=== PATIENT | male | born 1980 | race American Indian/Alaskan Native ===

== ENCOUNTER 2017-01-14 19:48 | Emergency (ER) | payer MEDICAID, OTHER ==
[2017-01-14 20:07] VITALS: BP 164/105
--- NOTE | 2017-01-14 20:17 | EDM.PDOC ---
ED HPI GENERAL MEDICAL PROBLEM - General Chief Complaint: General Stated Complaint: COLD [id number] Time Seen by Provider: 01/14/17 20:10 Source of Information: Reports: Patient History Limitations: Reports: No limitations - History of Present Illness INITIAL COMMENTS - FREE TEXT/NARRATIVE: This 36 yo male patient reports to the ED with a 2 day history of a cough, runny nose and sore throat. The patient reports his right upper chest hurts when he coughs. The patient reports he has been taking Dayquil with little to no symptom relief. The patient reports he has been feeling hot, but has not taken his temp. The patient has a past history of hypothyroid, hypertension, diabetes, GERD and anxiety. Onset: gradual Onset Date: 01/12/17 Duration: Day(s): (2), Constant, Getting worse Location: Reports: head, chest Quality: Reports: Ache, Dull Severity: moderate Improves with: Reports: None Worsens with: Reports: Other (coughing) Associated Symptoms: Reports: chest pain (RU with cough), cough w sputum Treatments [employer]: Reports: Other medication(s) Throat Pain Score (Numeric/FACES): 2 - Related Data Allergies Allergy/AdvReac Type Severity Reaction Status Date / Time No Known Allergies Allergy Verified 01/14/17 20:07 Home Meds: Home Meds Aspirin [[place] Aspirin] 81 mg PO DAILY 01/14/17 [History] Latanoprost [Xalatan] 2.5 ml OP DAILY 01/14/17 [History] Levothyroxine [Synthroid] 50 mcg PO ACBREAKFAST 01/14/17 [History] Loratadine 10 mg PO 01/14/17 [History] Metoprolol Tartrate 75 mg PO DAILY 01/14/17 [History] Polyvinyl Alcohol/Povidone/Pf [Refresh Classic Eye Drops] 1 each OP DAILY [History] SitaGLIPtin [Januvia] 100 mg PO DAILY 01/14/17 [History] Sodium Bicarbonate 650 mg PO BID 01/14/17 [History] amLODIPine [Norvasc] 10 mg PO BEDTIME 01/14/17 [History] cloNIDine [Catapres] 0.1 mg PO DAILY 01/14/17 [History] Past Medical History - Past Health History Medical/Surgical History: Denies Medical/Surgical History HEENT History: Reports: Impaired vision Other HEENT History: 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 Cardiovascular History: Reports: Hypertension Neurological History: Reports: CVA Psychiatric History: Reports: Anxiety Endocrine/Metabolic History: Reports: Diabetes, type II Hematologic History: Reports: Anemia - Infectious Disease History Infectious Disease History: Reports: Chicken pox - Past Surgical History Endocrine Surgical History: Reports: None Social & Family History - Family History Family Medical History: Unobtainable - Tobacco Use Smoking Status *Q: Never Smoker Years of Tobacco use: 15 Packs/Tins Daily: 1 Second Hand Smoke Exposure: No - Caffeine Use Caffeine Use: Reports: Tea - Alcohol Use Days Per Week of Alcohol Use: 2 Number of Drinks Per Day: 6 Total Drinks Per Week: 12 - Recreational Drug Use Recreational Drug Use: No Drug Use in Last 12 Months: No Recreational Drug Type: Reports: Methamphetamine Recreational Drug Use Frequency: Not Used In Over 1 Year - Living Situation & Occupation Living situation: Reports: other (currently in [facility]) Occupation: employed ED ROS GENERAL - Review of Systems Review Of Systems: ROS reveals no pertinent complaints other than HPI. ED EXAM, GENERAL - Physical Exam Exam: See Below Exam Limited By: No limitations General Appearance: alert, WD/WN, mild distress Eye Exam: bilateral eye: EOMI, normal inspection, PERRL Ears: normal external exam, normal canal, hearing grossly normal, normal TMs Nose: normal inspection, normal mucosa, no blood Throat/Mouth: Normal inspection, Normal lips, Normal teeth, Normal gums, Normal oropharynx, Normal voice, No airway compromise Head: atraumatic, normocephalic Neck: normal inspection, supple, non-tender, full range of motion Respiratory/Chest: no respiratory distress, lungs clear, normal breath sounds, no accessory muscle use, chest non-tender. No: rales, rhonchi, wheezing Cardiovascular: normal peripheral pulses, regular rate, rhythm, no edema, no gallop, no JVD, no murmur, no rub GI/Abdominal: normal bowel sounds, soft, non tender, no organomegaly, no distention, no abnormal bruit, no mass (Male) Exam: Deferred Rectal (Males) Exam: Deferred Back Exam: normal inspection, full range of motion, NT Extremities: normal inspection, normal range of motion, non-tender, normal capillary refill, no pedal edema Neurological: alert, oriented, CN II-XII intact, normal cognition, normal gait, normal reflexes, no motor/sensory deficits Psychiatric: normal affect, normal mood Skin Exam: Warm, Dry, Intact, Normal color, No rash Lymphatic: no adenopathy Course - Vital Signs Last Recorded V/S: Last Vital Signs Temp 36.4 C 01/14/17 19:57 Pulse 63 01/14/17 19:57 Resp 19 01/14/17 19:57 BP 164/105 H 01/14/17 19:57 Pulse Ox 100 01/14/17 19:57 - Orders/Labs/Meds Orders: Active Orders 24 hr Category Date Time Status Chest 2V [CR] Urgent Exams 01/14/17 20:12 Ordered Codeine/guaiFENesin [Robitussin AC] Med 01/14/17 20:31 Once 5 ml PO ONETIME ONE Medication Orders Guaifenesin/Codeine Phosphate (Robitussin Ac) 5 ml PO ONETIME ONE Stop: 01/14/17 20:32 Labs: Laboratory Tests 01/14/17 Range/Units 20:19 WBC 11.6 H (5.0-10.0) 10^3/uL RBC 3.83 L (4.6-6.2) 10^6/uL Hgb 10.9 L (14.0-18.0) g/dL Hct 32.3 L (40.0-54.0) % MCV 84.3 (80-100) fL MCH 28.5 (27.0-34.0) pg MCHC 33.7 (33.0-35.0) g/dL Plt Count 373 (150-450) 10^3/uL Neut % (Auto) 76.4 H (42.2-75.2) % Lymph % (Auto) 14.1 L (20.5-50.1) % Carter % (Auto) 6.6 (2-8) % Eos % (Auto) 2.5 (1.0-3.0) % Baso % (Auto) 0.4 (0.0-1.0) % Meds: Medications Generic Name Dose Route Start Last Admin Trade Name Freq PRN Reason Stop Dose Admin Guaifenesin/Codeine Phosphate 5 ml 01/14/17 20:31 Robitussin Ac PO 01/14/17 20:32 ONETIME ONE Discontinued Medications Generic Name Dose Route Start Last Admin Trade Name Michael PRN Reason Stop Dose Admin Amoxicillin/Clavulanate Potassium 1 tab 01/14/17 20:29 Augmentin 875 Mg/125 Mg PO 01/14/17 20:30 ONETIME ONE Departure - Departure Time of Disposition: 20:31 Disposition: Home, Self-Care 01 Condition: fair Clinical Impression: Acute bronchitis Qualifiers: Bronchitis organism: unspecified organism Qualified Code(s): J20.9 - Acute bronchitis, unspecified Instructions: Acute Bronchitis, [id number] Forms: ED Department Discharge Care Plan Goals: The patient was advised of the examination, lab and x-ray results during the visit. The patient was given an oral dose of Augmentin and Robatussin AC while in the ED. The patient discharged with a script for Augmentin (500/125) to take 1 by mouth 3 times per day for 7 days and Robitussin AC #100 mL to take 5 mL by mouth at bedtime as needed. If the patient has any additional symptoms or concerns, the patient should follow-up with his primary care facility or return to the emergency department. - My Orders Last 24 Hours: My Active Orders 01/14/17 20:12 Chest 2V [CR] Urgent 01/14/17 20:31 Codeine/guaiFENesin [Robitussin AC] 5 ml PO ONETIME ONE - Assessment/Plan Last 24 Hours: My Active Orders 01/14/17 20:12 Chest 2V [CR] Urgent 01/14/17 20:31 Codeine/guaiFENesin [Robitussin AC] 5 ml PO ONETIME ONE
[2017-01-14] MEDS ORDERED: Amoxicillin/Clavulanate K 875-125 MG Tab PO ONE (20:29)
[2017-01-14] MEDS ORDERED: Codeine/guaiFENesin 100-10 MG/5 ML Syrup 5 ML Cup PO ONE (20:31)
== END 2017-01-14 20:40 | disposition home or self-care (01) ==
LOC: DL.ED 19:48
DX: J20.9 Acute bronchitis, unspecified (principal); I10 Essential (primary) hypertension; F41.9 Anxiety disorder, unspecified; E11.9 Type 2 diabetes mellitus without complications; Z86.73 Personal history of transient ischemic attack (TIA), and cerebral infarction without residual deficits; Z79.82 Long term (current) use of aspirin; Z79.899 Other long term (current) drug therapy
CPT/HCPCS: 36415; 71020; 85025; 99283; A9270

== ENCOUNTER 2017-02-20 14:30 | Emergency (ER) | payer MEDICAID, OTHER, SELFPAY ==
[2017-02-20] MEDS ORDERED: Acetaminophen/HYDROcodone 325-10 MG Tab PO ONE (14:59)
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
[2017-02-20 15:13] VITALS: BP 148/92
== END 2017-02-20 15:10 | disposition home or self-care (01) ==
LOC: DL.ED 14:30
DX: K08.409 Partial loss of teeth, unspecified cause, unspecified class (principal); I10 Essential (primary) hypertension; F41.9 Anxiety disorder, unspecified; E11.9 Type 2 diabetes mellitus without complications; Z79.82 Long term (current) use of aspirin; Z79.899 Other long term (current) drug therapy; Z86.2 Personal history of diseases of the blood and blood-forming organs and certain disorders involving the immune mechanism
CPT/HCPCS: 99282; A9270

== ENCOUNTER 2017-03-12 20:10 | Emergency (ER) | payer MEDICAID, OTHER ==
[2017-03-12 20:20] VITALS: BP 172/96
[2017-03-12] MEDS ORDERED: Acetaminophen/HYDROcodone 325-10 MG Tab PO ONE (20:45)
[2017-03-12] MEDS ORDERED: Silver Sulfadiazine 1% Crm 50 GM Tube TOP ONE (20:45)
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
== END 2017-03-12 20:58 | disposition home or self-care (01) ==
LOC: DL.ED 20:10
DX: T23.211A Burn of second degree of right thumb (nail), initial encounter (principal); H54.7 Unspecified visual loss; Z79.82 Long term (current) use of aspirin; F41.9 Anxiety disorder, unspecified; E11.9 Type 2 diabetes mellitus without complications; I10 Essential (primary) hypertension; Z86.73 Personal history of transient ischemic attack (TIA), and cerebral infarction without residual deficits; D64.9 Anemia, unspecified; X03.8XXA Other exposure to controlled fire, not in building or structure, initial encounter
CPT/HCPCS: 16020; 99283; A9270

== ENCOUNTER 2018-04-24 08:40 | Day surgery (SDC) | payer MEDICAID, OTHER ==
[2018-04-24] MEDS ORDERED: Sodium Chloride 0.9% 10 ML Syringe IV ONE (08:41)
[2018-04-24] MEDS ORDERED: Midazolam 1 MG/ML 2 ML SDV IV ONE (08:41)
[2018-04-24] MEDS ORDERED: Dexamethasone 4 MG/ML SDV IV ONE (08:41)
[2018-04-24] MEDS ORDERED: Phenylephrine 10% Ophth Soln 5 ML Bot EYELF ONE (09:00)
[2018-04-24] MEDS ORDERED: Sodium Chloride 0.9% 10 ML Syringe FLUSH PRN (09:00)
[2018-04-24] MEDS ORDERED: Acetaminophen 325 MG Tab PO PRN (09:00)
[2018-04-24] MEDS ORDERED: Proparacaine 0.5% Ophth Soln 15 ML Bottle EYELF ONE (09:00)
[2018-04-24] MEDS ORDERED: Phenylephrine 10% Ophth Soln 5 ML Bot EYELF PRN (09:00)
[2018-04-24] MEDS ORDERED: Povidone-Iodine 5% Sterile Ophth Soln 30 ML Bottle EYELF ONE ×2 (09:00→09:47)
[2018-04-24] MEDS ORDERED: Cataract Ophth Solution EYELF ONE (09:00)
[2018-04-24] MEDS ORDERED: Timolol Maleate 0.5% Ophth Soln 5 ML Bottle EYELF ONE (09:00)
[2018-04-24] MEDS ORDERED: Moxifloxacin 0.5% Ophth Soln 3 ML Bottle EYELF ONE (09:00)
[2018-04-24] MEDS ORDERED: Ondansetron 4 MG/2 ML SDV IVPUSH PRN (09:00)
[2018-04-24] MEDS ORDERED: Lidocaine 1% 30 ML SDV ONE (09:47)
[2018-04-24] MEDS ORDERED: Balanced Salt Solution Ophth Irrig 500 ML Bottle IOCULAR ONE (09:47)
[2018-04-24] MEDS ORDERED: Chondroitin Sulfate/Hyaluronate Sodium Ophth Inj 0.75 ML Syringe EYELF ONE (09:47)
[2018-04-24] MEDS ORDERED: Tetracaine HCl/PF 0.5% 4 ML Bottle EYELF ONE (09:47)
[2018-04-24] MEDS ORDERED: Vancomycin 500 MG SDV EYELF ONE ×2 (09:47)
[2018-04-24] MEDS ORDERED: Apraclonidine 0.5% Ophth Soln 5 ML Bot EYELF ONE (09:58)
[2018-04-24] MEDS ORDERED: Dexamethasone/Neomycin/Polymyxin B Ophth Oint 3.5 GM Tube EYELF ONE ×2 (09:58)
[2018-04-24 11:17] VITALS: BP 130/83
--- NOTE | 2018-04-25 08:24 | OR ---
DATE: 04/24/2018 PREOPERATIVE DIAGNOSES: 1. Visually significant mixed cataract, left eye. 2. Primary open angle glaucoma, left eye. POSTOPERATIVE DIAGNOSES: 1. Visually significant mixed cataract, left eye. 2. Primary open angle glaucoma, left eye. PROCEDURES: 1. Extracapsular cataract extraction with intraocular lens implant. 2. Placement of iStent for glaucoma control. SURGEON: Dale Renae MD ANESTHESIA: Local MAC. INDICATION: Mr. Jensen was seen in the clinic. He is unhappy with his vision. He has noticed a progressive change. He has difficulty reading fine print. His best spectacle corrected vision is at the level of 20/200. Clinical examination reveals mixed cataract, moderate open-angle glaucoma. He also has a history of proliferative diabetic retinopathy. I explained options. I offered cataract surgery and I explained risks including the potential for infection, retinal detachment, loss of vision amongst others. I also explained that his ultimate visual potential will likely be limited by retinal health. I offered the surgery with or without the iStent. He requested the iStent procedure. I recommended a monofocal implant. He voiced an understanding and wished to proceed. OPERATIVE DESCRIPTION: The patient was prepped and draped in a sterile fashion and topical anesthesia was applied. Attention was placed on the operative eye. A sterile lid speculum was placed to allow operative exposure. Paracentesis was made temporal. Intracameral lidocaine was administered. Viscoelastic was injected. A full-thickness corneal incision was made using the trapezoidal blade. Bent needle cystotome was then used to make a small liz in the anterior capsule and a 360-degree curvilinear capsulorrhexis was created. Nucleus was then hydrodissected and hydrodelineated using balanced saline solution. Nucleus was then decompressed centrally and rotated and noted to be free of adhesions. Nucleus was then removed using the phacoemulsification handpiece. Additional viscoelastic was then injected into the capsular bag and the intraocular lens was inserted into the capsular bag. The iStent portion of the procedure was then performed. Following removal of the nucleus and cortex, the irrigation and aspiration handpiece was inserted to remove viscoelastic from the posterior surface of the IOL. Additional viscoelastic was then inserted into the anterior chamber angle directly opposite the corneal incision. Miochol was injected into the nasal iris to promote pupillary contraction. The patient's head was then rotated 35 degrees away from the initial position. The operating microscope was also rotated 35 degrees to achieve the proper orientation. The gonioprism was then placed onto the eye. The iStent was then inserted into the anterior chamber with the right hand and the stent was introduced into the pigmented trabecular meshwork. The stent was advanced beneath the trabecular meshwork until approximately two-thirds of the body was covered and then the stent was released from the insertion device. The stent was then tapped into its final resting position using the insertion device. The device was then reinspected to ensure that it was securely in position. The viscoelastic was aspirated from the anterior chamber. Wound and paracentesis sites were hydrated using balanced saline solution. Vancomycin 0.1 mL was injected into the anterior chamber. Intraocular lens was inspected and noted to be clear and well centered. Postoperative drops were placed and a sterile eye patch and shield were placed over the operative eye. The patient was then transported to the postoperative recovery area having tolerated the procedure well. No complications occurred. [facility] /[id number]
== END 2018-04-24 10:58 | disposition home or self-care (01) ==
LOC: DL.SDS 08:40
PROVIDERS: ATTEND Ophthalmology
DX: E11.36 Type 2 diabetes mellitus with diabetic cataract (principal); H25.812 Combined forms of age-related cataract, left eye; H40.1122 Primary open-angle glaucoma, left eye, moderate stage; I12.0 Hypertensive chronic kidney disease with stage 5 chronic kidney disease or end stage renal disease; E11.22 Type 2 diabetes mellitus with diabetic chronic kidney disease; N18.6 End stage renal disease; D63.1 Anemia in chronic kidney disease; Z99.2 Dependence on renal dialysis; E11.42 Type 2 diabetes mellitus with diabetic polyneuropathy; E11.21 Type 2 diabetes mellitus with diabetic nephropathy; E03.9 Hypothyroidism, unspecified; Z87.891 Personal history of nicotine dependence; Z79.82 Long term (current) use of aspirin; Z79.899 Other long term (current) drug therapy
CPT/HCPCS: 00142; 0191T; 66984; A9270; C1783; J1100; J2250; J3370; J7050; V2632

== ENCOUNTER 2018-05-01 08:59 | Day surgery (SDC) | payer MEDICAID, OTHER ==
[2018-05-01] MEDS ORDERED: Sodium Chloride 0.9% 10 ML Syringe IV ONE (09:00)
[2018-05-01] MEDS ORDERED: Midazolam 1 MG/ML 2 ML SDV IV ONE (09:00)
[2018-05-01] MEDS ORDERED: Dexamethasone 4 MG/ML SDV IV ONE (09:00)
[2018-05-01] MEDS ORDERED: Phenylephrine 10% Ophth Soln 5 ML Bot EYERT ONE (09:30)
[2018-05-01] MEDS ORDERED: Sodium Chloride 0.9% 10 ML Syringe FLUSH PRN (09:30)
[2018-05-01] MEDS ORDERED: Proparacaine 0.5% Ophth Soln 15 ML Bottle EYERT ONE (09:30)
[2018-05-01] MEDS ORDERED: Ondansetron 4 MG/2 ML SDV IVPUSH PRN (09:30)
[2018-05-01] MEDS ORDERED: Phenylephrine 10% Ophth Soln 5 ML Bot EYERT PRN (09:30)
[2018-05-01] MEDS ORDERED: Acetaminophen 325 MG Tab PO PRN (09:30)
[2018-05-01] MEDS ORDERED: Cataract Ophth Solution EYERT ONE (09:30)
[2018-05-01] MEDS ORDERED: Timolol Maleate 0.5% Ophth Soln 5 ML Bottle EYERT ONE (09:30)
[2018-05-01] MEDS ORDERED: Moxifloxacin 0.5% Ophth Soln 3 ML Bottle EYERT ONE (09:30)
[2018-05-01] MEDS ORDERED: Povidone-Iodine 5% Sterile Ophth Soln 30 ML Bottle EYERT ONE ×2 (09:30→10:19)
[2018-05-01] MEDS ORDERED: Tetracaine HCl/PF 0.5% 4 ML Bottle EYERT ONE (10:19)
[2018-05-01] MEDS ORDERED: Lidocaine 1% 30 ML SDV ONE (10:20)
[2018-05-01] MEDS ORDERED: Vancomycin 500 MG SDV EYERT ONE (10:20)
[2018-05-01] MEDS ORDERED: Chondroitin Sulfate/Hyaluronate Sodium Ophth Inj 0.75 ML Syringe EYERT ONE (10:21)
[2018-05-01] MEDS ORDERED: Balanced Salt Solution Ophth Irrig 500 ML Bottle IOCULAR ONE (10:21)
[2018-05-01] MEDS ORDERED: Diclofenac Sodium 0.1% Ophth Soln 5 ML Bottle EYERT ONE (10:22)
[2018-05-01] MEDS ORDERED: Apraclonidine 0.5% Ophth Soln 5 ML Bot EYERT ONE (10:22)
[2018-05-01] MEDS ORDERED: Dexamethasone/Neomycin/Polymyxin B Ophth Oint 3.5 GM Tube EYERT ONE (10:23)
[2018-05-01] MEDS ORDERED: Acetylcholine 20 MG/2 ML Intraocular Inj Kit EYERT ONE (10:24)
--- NOTE | 2018-05-01 11:21 | OR ---
DATE: PREOPERATIVE DIAGNOSES: 1. Visually significant mixed cataract, right eye. 2. Primary open angle glaucoma, right eye. POSTOPERATIVE DIAGNOSES: 1. Visually significant mixed cataract, right eye. 2. Primary open angle glaucoma, right eye. PROCEDURES: 1. Extracapsular cataract extraction with intraocular lens implant. 2. Placement of iStent for glaucoma control. SURGEON: Dale Renae MD ANESTHESIA: Local MAC. INDICATION: Mr. Jensen was seen in the clinic. His clinical examination revealed visually significant cataract and a moderate open angle glaucoma. OPERATIVE DESCRIPTION: The patient was prepped and draped in a sterile fashion and topical anesthesia was applied. Attention was placed on the operative eye. A sterile lid speculum was placed to allow operative exposure. Paracentesis was made temporal. Intracameral lidocaine was administered. Viscoelastic was injected. A full-thickness corneal incision was made using the trapezoidal blade. Bent needle cystotome was then used to make a small liz in the anterior capsule and a 360-degree curvilinear capsulorrhexis was created. Nucleus was then hydrodissected and hydrodelinated using balanced saline solution. Nucleus was then decompressed centrally and rotated and noted to be free of adhesions. Nucleus was then removed using the phacoemulsification handpiece. Additional viscoelastic was then injected into the capsular bag and the intraocular lens was inserted into the capsular bag. The iStent portion of the procedure was then performed. Following removal of the nucleus and cortex, the irrigation and aspiration handpiece was inserted to remove viscoelastic from the posterior surface of the IOL. Additional viscoelastic was then inserted into the anterior chamber angle directly opposite the corneal incision. Miochol was injected into the nasal iris to promote pupillary contraction. The patient's head was then rotated 35 degrees away from the initial position. The operating microscope was also rotated 35 degrees to achieve the proper orientation. The gonioprism was then placed onto the eye. The iStent was then inserted into the anterior chamber with the right hand and the stent was introduced into the pigmented trabecular meshwork. The stent was advanced beneath the trabecular meshwork until approximately two-thirds of the body was covered and then the stent was released from the insertion device. The stent was then tapped into its final resting position using the insertion device. The device was then reinspected to ensure that it was securely in position. The viscoelastic was aspirated from the anterior chamber. Wound and paracentesis sites were hydrated using balanced saline solution. Vancomycin 0.1 mL was injected into the anterior chamber. Intraocular lens was inspected and noted to be clear and well centered. Postoperative drops were placed and a sterile eye patch and shield were placed over the operative eye. The patient was then transported to the postoperative recovery area having tolerated the procedure well. No complications occurred. [facility] /[id number]
[2018-05-01 11:22] VITALS: BP 143/87
--- NOTE | 2018-05-01 12:07 | OR ---
DATE: 05/01/2018 PREOPERATIVE DIAGNOSES: 1. Visually significant mixed cataract, right eye. 2. Primary open angle glaucoma, right eye. POSTOPERATIVE DIAGNOSES: 1. Visually significant mixed cataract, right eye. 2. Primary open angle glaucoma, right eye. PROCEDURES: 1. Extracapsular cataract extraction with intraocular lens implant. 2. Placement of iStent for glaucoma control. SURGEON: Dale Renae MD. ANESTHESIA: Local MAC. INDICATION: Mr. Jensen was seen in the clinic. Clinical examination revealed mixed nuclear and central cortical cataract. He is symptomatic with difficulty reading. Examination also reveals moderate open-angle glaucoma. I explained options; I offered cataract surgery; and I explained risks including the potential for infection, retinal detachment, and loss of vision amongst others. I also explained that his ultimate visual health would depend on optic nerve and retinal health and that is likely to be limited. He is symptomatic and requested cataract surgery. He has requested a monofocal implant. He has requested the iStent procedure. OPERATIVE DESCRIPTION: The patient was prepped and draped in a sterile fashion, and topical anesthesia was applied. Attention was placed on the operative eye. A sterile lid speculum was placed to allow operative exposure. Paracentesis was made temporal. Intracameral lidocaine was administered. Viscoelastic was injected. A full-thickness corneal incision was made using the trapezoidal blade. Bent needle cystotome was then used to make a small liz in the anterior capsule, and a 360-degree curvilinear capsulorrhexis was created. Nucleus was then hydrodissected and hydrodelinated using balanced saline solution. Nucleus was then decompressed centrally and rotated and noted to be free of adhesions. Nucleus was then removed using the phacoemulsification handpiece. Additional viscoelastic was then injected into the capsular bag, and the intraocular lens was inserted into the capsular bag. The iStent portion of the procedure was then performed. Following removal of the nucleus and cortex, the irrigation and aspiration handpiece was inserted to remove viscoelastic from the posterior surface of the IOL. Additional viscoelastic was then inserted into the anterior chamber angle directly opposite the corneal incision. Miochol was injected into the nasal iris to promote pupillary contraction. The patient's head was then rotated 35 degrees away from the initial position. The operating microscope was also rotated 35 degrees to achieve the proper orientation. The gonioprism was then placed onto the eye. The iStent was then inserted into the anterior chamber with the right hand, and the stent was introduced into the pigmented trabecular meshwork. The stent was advanced beneath the trabecular meshwork until approximately two-thirds of the body was covered, and then the stent was released from the insertion device. The stent was then tapped into its final resting position using the insertion device. The device was then reinspected to ensure that it was securely in position. The viscoelastic was aspirated from the anterior chamber. Wound and paracentesis sites were hydrated using balanced saline solution. Vancomycin 0.1 mL was injected into the anterior chamber. Intraocular lens was inspected and noted to be clear and well centered. Postoperative drops were placed, and a sterile eye patch and shield were placed over the operative eye. The patient was then transported to the postoperative recovery area having tolerated the procedure well. No complications occurred. [facility] /[id number]
== END 2018-05-01 11:17 | disposition home or self-care (01) ==
LOC: DL.SDS 08:59
PROVIDERS: ATTEND Ophthalmology
DX: E11.36 Type 2 diabetes mellitus with diabetic cataract (principal); H25.811 Combined forms of age-related cataract, right eye; H40.1112 Primary open-angle glaucoma, right eye, moderate stage; I12.0 Hypertensive chronic kidney disease with stage 5 chronic kidney disease or end stage renal disease; E11.22 Type 2 diabetes mellitus with diabetic chronic kidney disease; N18.6 End stage renal disease; Z99.2 Dependence on renal dialysis; D63.1 Anemia in chronic kidney disease; E03.9 Hypothyroidism, unspecified; E11.21 Type 2 diabetes mellitus with diabetic nephropathy; E11.42 Type 2 diabetes mellitus with diabetic polyneuropathy; Z87.891 Personal history of nicotine dependence; Z79.82 Long term (current) use of aspirin; Z79.84 Long term (current) use of oral hypoglycemic drugs; Z79.899 Other long term (current) drug therapy
CPT/HCPCS: 00142; 0191T; 66984; A9270; C1780; C1783; J1100; J2250; J3370; J7050

== ENCOUNTER 2019-05-24 15:05 | Emergency (ER) | payer MEDICARE, MEDICAID ==
[2019-05-24 15:31] VITALS: BP 132/74; PULSE 94
== END 2019-05-24 16:30 | disposition left against medical advice (07) ==
LOC: DL.ED 15:05
DX: Z53.21 Procedure and treatment not carried out due to patient leaving prior to being seen by health care provider (principal)
CPT/HCPCS: 99282

== ENCOUNTER 2019-09-30 06:24 | Emergency (ER) | payer MEDICARE, MEDICAID ==
[2019-09-30 06:40] VITALS: BP 160/85; PULSE 88
--- NOTE | 2019-09-30 06:59 | EDM.PDOC ---
<Estela Hartmann - Last Filed: 09/30/19 07:18> ED HPI GENERAL MEDICAL PROBLEM - General Chief Complaint: General Stated Complaint: CAME FROM DIALYSIS Time Seen by Provider: 09/30/19 06:50 Source of Information: Reports: Patient, RN, RN Notes Reviewed History Limitations: Reports: No Limitations - History of Present Illness INITIAL COMMENTS - FREE TEXT/NARRATIVE: patient presents to ER dialysis with complaint of feeling lightheaded. Patient states as soon as he got into dialysis and began dialysis he began feeling very lightheaded. Patient states he is diabetic and has not eaten since 7 PM last night. patient states he felt somewhat short of breath at that time. Patient denies chest pains, N/V/D. Onset: Today, Sudden - Related Data Allergies Allergy/AdvReac Type Severity Reaction Status Date / Time No Known Allergies Allergy Verified 09/30/19 06:38 Home Meds: Home Meds Aspirin [[place] Aspirin] 81 mg PO DAILY 01/14/17 [History] Latanoprost [Xalatan] 1 drop EYEBOTH BEDTIME 01/14/17 [History] amLODIPine [Norvasc] 10 mg PO DAILY 01/14/17 [History] Timolol Maleate [Timoptic 0.5% Ophth Soln] 1 drop EYEBOTH BID 04/18/18 [History] Bumetanide [Bumex] 2 mg PO BID 09/30/19 [History] Calcium Acetate [PhosLo] 3 tab PO TID 09/30/19 [History] Cyanocobalamin/FA/Pyridoxine [B Complex-Folic Acid] 1 tab PO DAILY 09/30/19 [ History] Loratadine 10 mg PO DAILY 09/30/19 [History] Ondansetron [Zofran ODT] 4 mg PO BID 09/30/19 [History] Past Medical History - Past Health History Medical/Surgical History: Denies Medical/Surgical History HEENT History: Reports: Cataract, Glaucoma Other HEENT History: 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 Cardiovascular History: Reports: Hypertension Respiratory History: Reports: Other (See Below) Other Respiratory History: night sweats Gastrointestinal History: Reports: None Genitourinary History: Reports: Dialysis, Renal Disease Other Genitourinary History: 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 Musculoskeletal History: Reports: None Neurological History: Reports: Neuropathy, Diabetic Psychiatric History: Reports: Depression Endocrine/Metabolic History: Reports: Diabetes, Type II, Hypothyroidism Hematologic History: Reports: Anemia Immunologic History: Reports: None Oncologic (Cancer) History: Reports: None Dermatologic History: Reports: Other (See Below) Other Dermatologic History: "itchiness" - Infectious Disease History Infectious Disease History: Reports: Chicken Pox - Past Surgical History HEENT Surgical History: Reports: None, Cataract Surgery Cardiovascular Surgical History: Reports: None GI Surgical History: Reports: None Male Surgical History: Reports: None Endocrine Surgical History: Reports: None Musculoskeletal Surgical History: Reports: None Social & Family History - Family History Family Medical History: Unobtainable HEENT: Reports: Cataract, Glaucoma Cardiac: Reports: Hypertension - Tobacco Use Smoking Status *Q: Never Smoker Second Hand Smoke Exposure: No - Caffeine Use Caffeine Use: Reports: None Caffeine Use Comment: 8. oz - Recreational Drug Use Recreational Drug Use: No - Living Situation & Occupation Living situation: Reports: Other Occupation: Employed ED ROS GENERAL - Review of Systems Review Of Systems: Comprehensive ROS is negative, except as noted in HPI. ED EXAM, GENERAL - Physical Exam Exam: See Below Exam Limited By: No Limitations General Appearance: Alert, WD/WN, No Apparent Distress Eye Exam: Bilateral Eye: EOMI, Normal Inspection Ears: Normal External Exam, Hearing Grossly Normal Nose: Normal Inspection Throat/Mouth: Normal Inspection, Normal Voice, No Airway Compromise Head: Atraumatic, Normocephalic Neck: Normal Inspection, Supple, Non-Tender, Full Range of Motion Respiratory/Chest: No Respiratory Distress, Lungs Clear, Normal Breath Sounds, No Accessory Muscle Use, Chest Non-Tender Cardiovascular: Normal Peripheral Pulses, Regular Rate, Rhythm, No Edema, No Gallop, No JVD, No Murmur, No Rub Peripheral Pulses: 2+: Radial (L), Radial (R) GI/Abdominal: Normal Bowel Sounds, Soft, Non-Tender (Male) Exam: Deferred Rectal (Males) Exam: Deferred Back Exam: Normal Inspection, Full Range of Motion, NT Extremities: Normal Inspection, Normal Range of Motion, Non-Tender, No Pedal Edema, Normal Capillary Refill, Other (holding pressure to the left upper arm fistula site upon arrival) Neurological: Alert, Oriented, CN II-XII Intact, Normal Cognition, Normal Gait, Normal Reflexes, No Motor/Sensory Deficits Psychiatric: Normal Affect, Normal Mood Skin Exam: Warm, Dry, Intact, Normal Color, No Rash Lymphatic: No Adenopathy Course - Vital Signs Last Recorded V/S: Last Vital Signs Temp 36.5 C 09/30/19 06:36 Pulse 88 09/30/19 06:36 Resp 16 09/30/19 06:36 BP 160/85 H 09/30/19 06:36 Pulse Ox 100 09/30/19 06:36 - Orders/Labs/Meds Orders: Active Orders 24 hr Category Date Time Status Blood Glucose Check, Bedside [RC] ONETIME Care 09/30/19 06:50 Active EKG Documentation Completion [RC] STAT Care 09/30/19 06:50 Active Labs: Laboratory Tests 09/30/19 09/30/19 Range/Units 06:40 06:40 WBC 6.4 (5.0-10.0) 10^3/uL RBC 3.02 L (4.6-6.2) 10^6/uL Hgb 9.1 L D (14.0-18.0) g/dL Hct 26.7 L (40.0-54.0) % MCV 88.4 D (80-100) fL MCH 30.1 (27.0-34.0) pg MCHC 34.1 (33.0-35.0) g/dL Plt Count 196 D (150-450) 10^3/uL Neut % (Auto) 58.8 (42.2-75.2) % Lymph % (Auto) 25.5 (20.5-50.1) % [place] % (Auto) 10.4 H (2-8) % Eos % (Auto) 4.7 H (1.0-3.0) % Baso % (Auto) 0.6 (0.0-1.0) % Sodium 136 (135-145) mmol/L Potassium 5.2 H (3.6-5.0) mmol/L Chloride 97 L (101-111) mmol/L Carbon Dioxide 24.0 (21.0-31.0) mmol/L Anion Gap 20.2 BUN 83 H D (7-18) mg/dL Creatinine 17.3 H D (0.6-1.3) mg/dL Est Cr Clr Drug Dosing TNP Estimated GFR (MDRD) 3 BUN/Creatinine Ratio 4.79 Glucose 122 H (74-105) mg/dL Calcium 8.8 (8.4-10.2) mg/dl Total Bilirubin 1.1 H (0.2-1.0) mg/dL AST 15 (10-42) IU/L ALT 20 (10-60) IU/L Alkaline Phosphatase 102 (42-121) IU/L Troponin I 0.03 H* (0.00-0.02) ng/ml B-Natriuretic Peptide 253 H (0-100) pg/ml Total Protein 8.1 (6.7-8.2) g/dl Albumin 4.4 (3.2-5.5) g/dl Globulin 3.7 Albumin/Globulin Ratio 1.19 Departure - Departure Disposition: Home, Self-Care 01 Clinical Impression: Lightheaded - Discharge Information Forms: ED Department Discharge Care Plan Goals: The patient was advised of the examination and lab results during the visit. The patient was encouraged to eat a meal prior to going to dialysis in order to keep his blood sugar up. The patient was discharged from the ED to go to dialysis. If the patient has any additional symptoms or concerns, the patient should either return to the emergency department or visit his primary care facility. Sepsis Event Note - Evaluation Sepsis Screening Result: No Definite Risk - Focused Exam Vital Signs: Vital Signs Temp Pulse Resp BP Pulse Ox 09/30/19 06:36 36.5 C 88 16 160/85 H 100 Date Exam was Performed: 09/30/19 Time Exam was Performed: 07:18 <Gigi Barth - Last Filed: 09/30/19 08:19> Course - Re-Assessments/Exams Free Text/Narrative Re-Assessment/Exam: 09/30/19 08:10 The patient was advised of the lab results. The patient reports he is feeling better after getting some food and juice. The patient reports he has not eaten anything since 1930 last night. A call was placed to Dialysis to see if they had a spot for this patient to receive dialysis today and they had another opening at 0845. The patient was advised of the opening and would like to rest in the ED until it is time for dialysis. Departure - Departure Time of Disposition: 08:30 Condition: Fair - Discharge Information *PRESCRIPTION DRUG MONITORING PROGRAM REVIEWED*: Not Applicable *COPY OF PRESCRIPTION DRUG MONITORING REPORT IN PATIENT ILEANA: Not Applicable Sepsis Event Note - Focused Exam Date Exam was Performed: 09/30/19 Time Exam was Performed: 07:46
[2019-09-30 07:07] LABS: ANION GAP 20.2; CHLORIDE,CL 97 mmol/L (101-111); SODIUM,NA 136 mmol/L (135-145)
== END 2019-09-30 08:37 | disposition home or self-care (01) ==
LOC: DL.ED 06:24
DX: R42 Dizziness and giddiness (principal); I10 Essential (primary) hypertension; E11.40 Type 2 diabetes mellitus with diabetic neuropathy, unspecified; E03.9 Hypothyroidism, unspecified; F32.9 Major depressive disorder, single episode, unspecified; Z79.82 Long term (current) use of aspirin; Z79.899 Other long term (current) drug therapy
CPT/HCPCS: 36415; 71045; 80053; 82962; 83880; 84484; 85025; 93005; 99284-25

== ENCOUNTER 2020-03-05 15:27 | Emergency (ER) | payer MEDICARE, MEDICAID ==
[2020-03-05 15:44] VITALS: BP 153/78; PULSE 96
--- NOTE | 2020-03-05 17:57 | CR ---
PROCEDURE INFORMATION: Exam: XR Chest, 1 View Exam date and time: 03/05/2020 5:49 PM Age: 39 years old Clinical indication: Shortness of breath; Additional info: Missed dialysis, SOB TECHNIQUE: Imaging protocol: XR of the chest Views: 1 view. COMPARISON: CR Chest 1V Frontal 09/30/2019 7:07 AM FINDINGS: Lungs: Bilateral perihilar infiltrates consistent with pulmonary edema. Pleural space: Unremarkable. No pleural effusion. No pneumothorax. Heart/Mediastinum: Unremarkable. No cardiomegaly. Bones/joints: Unremarkable. IMPRESSION: Bilateral perihilar infiltrates consistent with pulmonary edema
[2020-03-05 18:28] LABS: ANION GAP 24.8 mEq/L (7-13); CHLORIDE,CL 94 mmol/L (98-107); SODIUM,NA 133 mmol/L (136-145)
[2020-03-05] MEDS ORDERED: Furosemide 40 MG/4 ML VIAL IVPUSH ONE (18:39)
--- NOTE | 2020-03-05 19:08 | EDM.PDOC ---
ED HPI GENERAL MEDICAL PROBLEM - General Chief Complaint: Respiratory Problem Stated Complaint: SHORTNESS OF BREATH LIGHT HEADED Time Seen by Provider: 03/05/20 15:45 Source of Information: Reports: Patient, Family, RN History Limitations: Reports: No Limitations - History of Present Illness INITIAL COMMENTS - FREE TEXT/NARRATIVE: ED with c/o feeling SOB, missed dilaysis yesterday for . Scheduled tomorrow at 5am but doesn't feel can wait that long. No chest pain, No fever. No nausea , Reports limiting fluids though dad present frequently demanding ice and liquids for patient. - Related Data Allergies Allergy/AdvReac Type Severity Reaction Status Date / Time No Known Allergies Allergy Verified 03/05/20 15:43 Home Meds: Home Meds Aspirin [[place] Aspirin] 81 mg PO DAILY 01/14/17 [History] Latanoprost [Xalatan] 1 drop EYEBOTH BEDTIME 01/14/17 [History] amLODIPine [Norvasc] 10 mg PO DAILY 01/14/17 [History] timoloL maleate [Timoptic 0.5% Ophth Soln] 1 drop EYEBOTH BID 04/18/18 [History] Bumetanide [Bumex] 2 mg PO BID 09/30/19 [History] Calcium Acetate [PhosLo] 3 tab PO TID 09/30/19 [History] Cyanocobalamin/Folic AC/Vit B6 [B Complex-Folic Acid] 1 tab PO DAILY 09/30/19 [History] Ondansetron [Zofran ODT] 4 mg PO BID 09/30/19 [History] Past Medical History - Past Health History Medical/Surgical History: Denies Medical/Surgical History HEENT History: Reports: Cataract, Glaucoma Other HEENT History: 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 Cardiovascular History: Reports: Hypertension Respiratory History: Reports: Other (See Below) Other Respiratory History: night sweats Gastrointestinal History: Reports: None Genitourinary History: Reports: Dialysis, Renal Disease Other Genitourinary History: 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 Musculoskeletal History: Reports: None Neurological History: Reports: Neuropathy, Diabetic Psychiatric History: Reports: Depression Endocrine/Metabolic History: Reports: Diabetes, Type II, Hypothyroidism Hematologic History: Reports: Anemia Immunologic History: Reports: None Oncologic (Cancer) History: Reports: None Dermatologic History: Reports: Other (See Below) Other Dermatologic History: "itchiness" - Infectious Disease History Infectious Disease History: Reports: Chicken Pox - Past Surgical History HEENT Surgical History: Reports: None, Cataract Surgery Cardiovascular Surgical History: Reports: None GI Surgical History: Reports: None Male Surgical History: Reports: None Endocrine Surgical History: Reports: None Musculoskeletal Surgical History: Reports: None Social & Family History - Family History Family Medical History: Unobtainable HEENT: Reports: Cataract, Glaucoma Cardiac: Reports: Hypertension - Tobacco Use Smoking Status *Q: Never Smoker Second Hand Smoke Exposure: No - Caffeine Use Caffeine Use: Reports: Coffee Caffeine Use Comment: 8. oz - Recreational Drug Use Recreational Drug Use: No - Living Situation & Occupation Living situation: Reports: Other Occupation: Employed ED ROS GENERAL - Review of Systems Review Of Systems: Comprehensive ROS is negative, except as noted in HPI. ED EXAM, GENERAL - Physical Exam Exam: See Below Exam Limited By: No Limitations General Appearance: Alert, No Apparent Distress, Obese Eye Exam: Bilateral Eye: EOMI Ears: Normal External Exam Nose: Normal Inspection Throat/Mouth: Normal Inspection Head: Atraumatic, Normocephalic Neck: Normal Inspection Respiratory/Chest: No Respiratory Distress, Decreased Breath Sounds, Crackles (bases). No: Wheezing, Stridor Cardiovascular: Regular Rate, Rhythm. No: No Edema GI/Abdominal: Normal Bowel Sounds Extremities: Normal Inspection, Normal Range of Motion, Pedal Edema Neurological: Alert, Oriented, Normal Cognition Psychiatric: Flat Affect Skin Exam: Warm, Dry, Tattoo(s) Course - Vital Signs Last Recorded V/S: Last Vital Signs Temp 97.4 F 03/05/20 15:39 Pulse 96 03/05/20 15:39 Resp 16 03/05/20 15:39 BP 153/78 H 03/05/20 15:39 Pulse Ox 94 L 03/05/20 15:39 - Orders/Labs/Meds Labs: Laboratory Tests 03/05/20 03/05/20 Range/Units 17:58 17:58 WBC 10.3 H (5.0-10.0) 10^3/uL RBC 2.95 L (4.6-6.2) 10^6/uL Hgb 8.9 L (14.0-18.0) g/dL Hct 27.4 L (40.0-54.0) % MCV 92.9 D (80-100) fL MCH 30.2 (27.0-34.0) pg MCHC 32.5 L (33.0-35.0) g/dL Plt Count 185 (150-450) 10^3/uL Neut % (Auto) 82.0 H (42.2-75.2) % Lymph % (Auto) 7.3 L (20.5-50.1) % [place] % (Auto) 8.9 H (2-8) % Eos % (Auto) 1.5 (1.0-3.0) % Baso % (Auto) 0.3 (0.0-1.0) % Sodium 133 L (136-145) mmol/L Potassium 6.8 H* (3.5-5.1) mmol/L Chloride 94 L (98-107) mmol/L Carbon Dioxide 21 (21-32) mmol/L Anion Gap 24.8 H (7-13) mEq/L BUN 137 H (7-18) mg/dL Creatinine 20.91 H* (0.70-1.30) mg/dL Est Cr Clr Drug Dosing 5.08 mL/min Estimated GFR (MDRD) 2 BUN/Creatinine Ratio 6.6 (No establ ref range) Glucose 85 (74-99) mg/dL Calcium 8.2 L (8.5-10.1) mg/dL Total Bilirubin 0.6 (0.2-1.0) mg/dL AST 12 L (15-37) U/L ALT 20 (16-63) U/L Alkaline Phosphatase 115 (46-116) U/L Troponin I < 0.017 (0.000-0.056) ng/mL B-Natriuretic Peptide 551 H (0-100) pg/ml Total Protein 7.4 (6.4-8.2) g/dL Albumin 3.3 L (3.4-5.0) g/dL Globulin 4.1 Albumin/Globulin Ratio 0.80 Meds: Medications Discontinued Medications Generic Name Dose Route Start Last Admin Trade Name Freq PRN Reason Stop Dose Admin Furosemide 40 mg 03/05/20 18:39 03/05/20 19:01 Lasix IVPUSH 03/05/20 18:40 40 mg NOW ONE Administration - Re-Assessments/Exams Free Text/Narrative Re-Assessment/Exam: 03/07/20 16:52 [facility] on critical care diversion. No bed available. [place] accepting. Patient does not want to wait for ambulance to transfer, [facility] take [facility]. Dad giving patient regular coke. Glucose bedside 85. Departure - Departure Time of Disposition: 19:03 Disposition: DC/Tfer to Acute Hospital 02 Condition: Undetermined Clinical Impression: SOB (shortness of breath) Volume overload Qualifiers: Hypervolemia type: other Qualified Code(s): E87.79 - Other fluid overload CHF (congestive heart failure) Qualifiers: Heart failure type: unspecified Heart failure chronicity: acute on chronic Qualified Code(s): I50.9 - Heart failure, unspecified - Discharge Information *PRESCRIPTION DRUG MONITORING PROGRAM REVIEWED*: No *COPY OF PRESCRIPTION DRUG MONITORING REPORT IN PATIENT ILEANA: No Forms: ED Department Discharge Additional Instructions: Dialysis in [place] Refused Ambulance, Nothing to drink Sepsis Event Note (ED) - Evaluation Sepsis Screening Result: No Definite Risk
== END 2020-03-05 19:14 ==
LOC: DL.ED 15:27
DX: I11.0 Hypertensive heart disease with heart failure (principal); I50.9 Heart failure, unspecified; E87.79 Other fluid overload; E11.40 Type 2 diabetes mellitus with diabetic neuropathy, unspecified; E66.9 Obesity, unspecified; Z68.31 Body mass index [BMI] 31.0-31.9, adult; Z79.82 Long term (current) use of aspirin; Z79.899 Other long term (current) drug therapy
CPT/HCPCS: 36415; 71045; 80053; 83880; 84484; 85025; 93005; 96374; 99285; J1940

== ENCOUNTER 2020-05-06 14:22 | Emergency (ER) | payer MEDICARE, MEDICAID | END 2020-05-06 15:39 | disposition left against medical advice (07) | LOC: DL.ED 14:22 | DX: Z53.21 Procedure and treatment not carried out due to patient leaving prior to being seen by health care provider (principal) ==

== ENCOUNTER 2020-09-07 15:47 | Emergency (ER) | payer MEDICARE, MEDICAID ==
[2020-09-07 16:01] VITALS: BP 192/91; PULSE 100
--- NOTE | 2020-09-07 16:20 | EDM.PDOC ---
ED HPI GENERAL MEDICAL PROBLEM - General Chief Complaint: General Stated Complaint: MISSED DIALYSIS, NOW YOU HAVE SHORTNESS OF BREATH Time Seen by Provider: 09/07/20 16:05 Source of Information: Reports: Patient, Old Records, RN, RN Notes Reviewed History Limitations: Reports: No Limitations - History of Present Illness INITIAL COMMENTS - FREE TEXT/NARRATIVE: Patient presents to the ED via personal vehicle with complaints of shortness of breath and shaking chills. The patient reports a history of CKD for which he receives hemodialysis on a Sunday//Sunday schedule. The patient states he has not received hemodialysis since early last week as he was in [place], [place] visiting family over the holiday. He reports he began to experience the shortness of breath yesterday afternoon, which has progressively worsened since that time. Additionally, he reports diaphoresis, chest discomfort, nausea, vomiting, and diarrhea. He does attest to a COVID infection in mid- July from which he recovered without complication. He denies vision changes, headache, palpitations, hematemesis, melena, or hematochezia. He states he was in contact with "Rosa" his dialysis [facility]ATE who informed him to present to the ED today as his "...potassium may be high." He denies tobacco, alcohol, or recreational drug use. - Related Data Allergies Allergy/AdvReac Type Severity Reaction Status Date / Time No Known Allergies Allergy Verified 09/07/20 15:57 Home Meds: Home Meds Aspirin [[place]orro Aspirin] 81 mg PO DAILY 01/14/17 [History] Latanoprost [Xalatan] 1 drop EYEBOTH BEDTIME 01/14/17 [History] amLODIPine [Norvasc] 10 mg PO DAILY 01/14/17 [History] timoloL maleate [Timoptic 0.5% Ophth Soln] 1 drop EYEBOTH BID 04/18/18 [History] Bumetanide [Bumex] 2 mg PO BID 09/30/19 [History] Calcium Acetate [PhosLo] 3 tab PO TID 09/30/19 [History] Cyanocobalamin/Folic AC/Vit B6 [B Complex-Folic Acid] 1 tab PO DAILY 09/30/19 [History] Ondansetron [Zofran ODT] 4 mg PO BID 09/30/19 [History] Past Medical History - Past Health History Medical/Surgical History: Denies Medical/Surgical History HEENT History: Reports: Cataract, Glaucoma Other HEENT History: 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 Cardiovascular History: Reports: Hypertension Respiratory History: Reports: Other (See Below) Other Respiratory History: night sweats Gastrointestinal History: Reports: None Genitourinary History: Reports: Dialysis, Renal Disease Other Genitourinary History: 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 Musculoskeletal History: Reports: None Neurological History: Reports: Neuropathy, Diabetic Psychiatric History: Reports: Depression Endocrine/Metabolic History: Reports: Diabetes, Type II, Hypothyroidism Hematologic History: Reports: Anemia Immunologic History: Reports: None Oncologic (Cancer) History: Reports: None Dermatologic History: Reports: Other (See Below) Other Dermatologic History: "itchiness" - Infectious Disease History Infectious Disease History: Reports: Chicken Pox - Past Surgical History HEENT Surgical History: Reports: None, Cataract Surgery Cardiovascular Surgical History: Reports: None GI Surgical History: Reports: None Male Surgical History: Reports: None Endocrine Surgical History: Reports: None Musculoskeletal Surgical History: Reports: None Social & Family History - Family History Family Medical History: Unobtainable HEENT: Reports: Cataract, Glaucoma Cardiac: Reports: Hypertension - Tobacco Use Tobacco Use Status *Q: Never Tobacco User Second Hand Smoke Exposure: No - Caffeine Use Caffeine Use: Reports: Coffee Caffeine Use Comment: 8. oz - Recreational Drug Use Recreational Drug Use: No - Living Situation & Occupation Living situation: Reports: Other Occupation: Employed ED ROS GENERAL - Review of Systems Review Of Systems: Comprehensive ROS is negative, except as noted in HPI. ED EXAM, GENERAL - Physical Exam Exam: See Below Exam Limited By: No Limitations General Appearance: Alert, Mild Distress (Shortness of breath) Eye Exam: Bilateral Eye: EOMI, Normal Inspection, PERRL (3mm) Throat/Mouth: Normal Inspection, Normal Voice, No Airway Compromise Head: Atraumatic, Normocephalic Neck: Normal Inspection, Supple, Non-Tender, Full Range of Motion. No: Lymphadenopathy (L), Lymphadenopathy (R) Respiratory/Chest: Chest Non-Tender, Decreased Breath Sounds, Accessory Muscle Use Cardiovascular: Regular Rate, Rhythm, No Gallop, No Rub, JVD, Tachycardia, Systolic Murmur (4/6, loudest over the aortic area) Peripheral Pulses: 2+: Dorsalis Pedis (L), Dorsalis Pedis (R), 3+: Radial (L), Radial (R) GI/Abdominal: Normal Bowel Sounds, Soft, Non-Tender, No Distention, No Mass, Pelvis Stable (Male) Exam: Deferred Rectal (Males) Exam: Deferred Back Exam: Normal Inspection, Full Range of Motion Extremities: Normal Range of Motion, Non-Tender, Normal Capillary Refill, Pedal Edema (+2 pitting edema, bilaterally) Neurological: Alert, Oriented, CN II-XII Intact, Normal Cognition, No Motor/Sensory Deficits Psychiatric: Normal Affect, Normal Mood Skin Exam: Warm, Intact, Normal Color, No Rash, Diaphoretic. No: Ecchymosis, Erythema, Mottled, Pallor, Petechiae Course - Vital Signs Last Recorded V/S: Last Vital Signs Temp 96.7 F L 09/07/20 15:58 Pulse 100 09/07/20 15:58 Resp 18 09/07/20 15:58 BP 192/91 H 09/07/20 15:58 Pulse Ox 98 09/07/20 15:58 - Orders/Labs/Meds Orders: Active Orders 24 hr Category Date Time Status CULTURE BLOOD [BC] Stat Lab 09/07/20 16:22 Received CULTURE BLOOD [BC] Stat Lab 09/07/20 16:56 Received Blood Culture x2 Reflex Set [OM.PC] Stat Oth 09/07/20 16:11 Ordered Labs: Laboratory Tests 09/07/20 09/07/20 09/07/20 Range/Units 16:22 16:22 16:22 WBC 7.6 (5.0-10.0) 10^3/uL RBC 2.98 L (4.6-6.2) 10^6/uL Hgb 9.2 L (14.0-18.0) g/dL Hct 27.5 L (40.0-54.0) % MCV 92.3 (80-100) fL MCH 30.9 (27.0-34.0) pg MCHC 33.5 (33.0-35.0) g/dL Plt Count 145 L (150-450) 10^3/uL Neut % (Auto) 75.0 (42.2-75.2) % Lymph % (Auto) 10.4 L (20.5-50.1) % Bremer % (Auto) 9.9 H (2-8) % Eos % (Auto) 4.0 H (1.0-3.0) % Baso % (Auto) 0.7 (0.0-1.0) % Sodium 132 L (136-145) mmol/L Potassium 7.1 H* (3.5-5.1) mmol/L Chloride 96 L (98-107) mmol/L Carbon Dioxide 22 (21-32) mmol/L Anion Gap 21.1 H (7-13) mEq/L BUN 97 H D (7-18) mg/dL Creatinine 19.97 H* (0.70-1.30) mg/dL Est Cr Clr Drug Dosing 5.24 mL/min Estimated GFR (MDRD) 3 BUN/Creatinine Ratio 4.9 (No establ ref range) Glucose 109 H (74-99) mg/dL POC Glucose (70-105) mg/dl Lactic Acid 0.4 (0.4-2.0) mmol/L Calcium 9.1 (8.5-10.1) mg/dL Phosphorus 4.0 (2.6-4.7) mg/dL Magnesium 3.4 H (1.8-2.4) mg/dL Total Bilirubin 0.6 (0.2-1.0) mg/dL AST 10 L (15-37) U/L ALT 19 (16-63) U/L Alkaline Phosphatase 93 (46-116) U/L Troponin I 0.070 H* (0.000-0.056) ng/mL B-Natriuretic Peptide 195 H (0-100) pg/ml Total Protein 7.8 (6.4-8.2) g/dL Albumin 4.0 (3.4-5.0) g/dL Globulin 3.8 Albumin/Globulin Ratio 1.1 SARS-CoV-2 RNA (MARJORIE) (NEGATIVE) 09/07/20 09/07/20 Range/Units 16:32 17:10 WBC (5.0-10.0) 10^3/uL RBC (4.6-6.2) 10^6/uL Hgb (14.0-18.0) g/dL Hct (40.0-54.0) % MCV (80-100) fL MCH (27.0-34.0) pg MCHC (33.0-35.0) g/dL Plt Count (150-450) 10^3/uL Neut % (Auto) (42.2-75.2) % Lymph % (Auto) (20.5-50.1) % Bremer % (Auto) (2-8) % Eos % (Auto) (1.0-3.0) % Baso % (Auto) (0.0-1.0) % Sodium (136-145) mmol/L Potassium (3.5-5.1) mmol/L Chloride (98-107) mmol/L Carbon Dioxide (21-32) mmol/L Anion Gap (7-13) mEq/L BUN (7-18) mg/dL Creatinine (0.70-1.30) mg/dL Est Cr Clr Drug Dosing mL/min Estimated GFR (MDRD) BUN/Creatinine Ratio (No establ ref range) Glucose (74-99) mg/dL POC Glucose 108 H (70-105) mg/dl Lactic Acid (0.4-2.0) mmol/L Calcium (8.5-10.1) mg/dL Phosphorus (2.6-4.7) mg/dL Magnesium (1.8-2.4) mg/dL Total Bilirubin (0.2-1.0) mg/dL AST (15-37) U/L ALT (16-63) U/L Alkaline Phosphatase (46-116) U/L Troponin I (0.000-0.056) ng/mL B-Natriuretic Peptide (0-100) pg/ml Total Protein (6.4-8.2) g/dL Albumin (3.4-5.0) g/dL Globulin Albumin/Globulin Ratio SARS-CoV-2 RNA (MARJORIE) Positive H (NEGATIVE) Meds: Medications Discontinued Medications Generic Name Dose Route Start Last Admin Trade Name Freq PRN Reason Stop Dose Admin Dextrose/Water 50 ml 09/07/20 17:20 09/07/20 17:33 Dextrose 50% In Water IVPUSH 09/07/20 17:21 50 ml ONETIME ONE Administration Insulin Human Regular 10 unit 09/07/20 17:20 09/07/20 17:33 Humulin R IV 09/07/20 17:21 10 units ONETIME ONE Administration - Radiology Interpretation Free Text/Narrative:: [facility] - [facility] Final Radiology Report 24/7/365 Call: [phone] assistance Online chat: [email or web address] Name: SACHIN ROLAND Age: 39Years M Date: 09/07/2020 SSN: -- : [id number] Study: CR CHEST 1V FRONTAL Requesting Physician: Lottie Torres Images: 1 Addl Studies: Provided Clinical History: Shortness of breath; Tachycardia Contrast: Contrast Medium: Contrast Amount: Contrast Method: CONFIDENTIALITY STATEMENT This report is intended only for use by the referring physician, and only in accordance with law. If you received this in error, call [phone]. Page 1 of 1 PROCEDURE INFORMATION: Exam: XR Chest, 1 View Exam date and time: 09/07/2020 4:27 PM Age: 39 years old Clinical indication: Other: Shortness of breath; Tachycardia TECHNIQUE: Imaging protocol: XR of the chest Views: 1 view. COMPARISON: Prior chest radiographs of 03/05/2020 FINDINGS: Lungs: Appear clear radiographically. Previously seen bilateral airspace disease has resolved. Pleural space: No pleural effusions. No pneumothorax. Heart/Mediastinum: Heart appears mildly enlarged, similar to the prior exam. Bones/joints: No acute abnormality. IMPRESSION: 1. No radiographic evidence of acute disease in the chest. 2. Mild cardiomegaly, also seen on a prior exam. 3. See above for remaining findings. Thank you for allowing us to participate in the care of your patient. Dictated and Authenticated by: Zeinab Rico MD 09/07/2020 4:36 PM Central Time ([place] & [place]) - Re-Assessments/Exams Free Text/Narrative Re-Assessment/Exam: 09/07/20 K 7.1, Creatinine 19.9, Mag 3.8, Glucose 109, Troponin 0.07 Patient given Insulin 10u with D50 following. Case [facility] with [facility] who are unable to accept patient for transport as they have no critical care beds available. Case discussed with Dr. More at [facility] who kindly accepted the patient for transfer. He requested no interventions en route. Departure - Departure Time of Disposition: 17:37 Disposition: DC/Tfer to Acute Hospital 02 Condition: Fair Clinical Impression: Elevated serum creatinine, Elevated troponin, Elevated brain natriuretic peptide (BNP) level, Hyperkalemia, Hypermagnesemia Chronic kidney disease Qualifiers: Chronic kidney disease stage: unspecified stage Qualified Code(s): N18.9 - Chronic kidney disease, unspecified - Discharge Information Referrals: PCP,None [Primary Care Provider] - Forms: ED Department Discharge, Interfacility Transfer [facility] Sepsis Event Note (ED) - Evaluation Sepsis Screening Result: No Definite Risk - My Orders Last 24 Hours: My Active Orders 09/07/20 16:11 Blood Culture x2 Reflex Set [OM.PC] Stat 09/07/20 16:22 CULTURE BLOOD [BC] Stat 09/07/20 16:56 CULTURE BLOOD [BC] Stat - Assessment/Plan Last 24 Hours: My Active Orders 09/07/20 16:11 Blood Culture x2 Reflex Set [OM.PC] Stat 09/07/20 16:22 CULTURE BLOOD [BC] Stat 09/07/20 16:56 CULTURE BLOOD [BC] Stat
--- NOTE | 2020-09-07 16:36 | CR ---
PROCEDURE INFORMATION: Exam: XR Chest, 1 View Exam date and time: 09/07/2020 4:27 PM Age: 39 years old Clinical indication: Other: Shortness of breath; Tachycardia TECHNIQUE: Imaging protocol: XR of the chest Views: 1 view. COMPARISON: Prior chest radiographs of 03/05/2020 FINDINGS: Lungs: Appear clear radiographically. Previously seen bilateral airspace disease has resolved. Pleural space: No pleural effusions. No pneumothorax. Heart/Mediastinum: Heart appears mildly enlarged, similar to the prior exam. Bones/joints: No acute abnormality. IMPRESSION: 1. No radiographic evidence of acute disease in the chest. 2. Mild cardiomegaly, also seen on a prior exam. 3. See above for remaining findings.
[2020-09-07 16:55] LABS: ANION GAP 21.1 mEq/L (7-13)
[2020-09-07] MEDS ORDERED: Insulin Regular, Human 100 Units/ML 3 ML Vial IV ONE (17:20)
[2020-09-07] MEDS ORDERED: 50% Dextrose in Water 50 ML Syringe IVPUSH ONE (17:20)
== END 2020-09-07 18:00 ==
LOC: DL.ED 15:47
DX: U07.1 COVID-19 (principal); R74.8 Abnormal levels of other serum enzymes; R79.89 Other specified abnormal findings of blood chemistry; R79.1 Abnormal coagulation profile; E87.5 Hyperkalemia; E83.41 Hypermagnesemia; I12.0 Hypertensive chronic kidney disease with stage 5 chronic kidney disease or end stage renal disease; E11.22 Type 2 diabetes mellitus with diabetic chronic kidney disease; N18.6 End stage renal disease; F32.9 Major depressive disorder, single episode, unspecified; E03.9 Hypothyroidism, unspecified; D64.9 Anemia, unspecified; Z99.2 Dependence on renal dialysis; Z79.899 Other long term (current) drug therapy
CPT/HCPCS: 36415; 71045; 80053; 82962; 83605; 83735; 83880; 84100; 84484; 85025; 87040; 93005; 96374; 99285-25; J1815-GY; U0002

== ENCOUNTER 2021-09-13 03:27 | Emergency (ER) | payer MEDICARE, MEDICAID ==
[2021-09-13 04:00] VITALS: BP 169/97; PULSE 80
[2021-09-13 04:51] LABS: CORONAVIRUS COVID-19 NAA NEGATIVE (NEGATIVE)
--- NOTE | 2021-09-13 04:56 | EDM.PDOC ---
ED HPI GENERAL MEDICAL PROBLEM - General Chief Complaint: ENT Problem Time Seen by Provider: 09/13/21 04:50 Source of Information: Reports: Patient History Limitations: Reports: No Limitations - History of Present Illness INITIAL COMMENTS - FREE TEXT/NARRATIVE: This 40 yo male patient reports to the ED due to starting to have a fever and body aches that started yesterday. The patient reports he did take a 325 mg Tylenol prior to coming to the ED. The patient reports his son had the flu last week. Onset Date: 09/12/21 Duration: Constant, Getting Worse Location: Reports: Generalized Quality: Reports: Other Severity: Moderate Improves with: Reports: None Worsens with: Reports: None Associated Symptoms: Reports: Fever/Chills Treatments [employer]: Reports: Acetaminophen - Related Data Allergies Allergy/AdvReac Type Severity Reaction Status Date / Time No Known Allergies Allergy Verified 09/07/20 15:57 Home Meds: Home Meds Aspirin [[place]ridge Aspirin] 81 mg PO DAILY 01/14/17 [History] Latanoprost [Xalatan] 1 drop EYEBOTH BEDTIME 01/14/17 [History] amLODIPine [Norvasc] 10 mg PO DAILY 01/14/17 [History] timoloL maleate [Timoptic 0.5 % O/S 5 ML] 1 drop EYEBOTH BID 04/18/18 [History] Bumetanide [Bumex] 2 mg PO BID 09/30/19 [History] Calcium Acetate [PhosLo] 3 tab PO TID 09/30/19 [History] Cyanocobalamin/Folic AC/Vit B6 [B Complex-Folic Acid] 1 tab PO DAILY 09/30/19 [History] Ondansetron [Zofran ODT] 4 mg PO BID 09/30/19 [History] Past Medical History - Past Health History Medical/Surgical History: Denies Medical/Surgical History HEENT History: Reports: Cataract, Glaucoma Other HEENT History: 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 Cardiovascular History: Reports: Hypertension Respiratory History: Reports: Other (See Below) Other Respiratory History: night sweats Gastrointestinal History: Reports: None Genitourinary History: Reports: Dialysis, Renal Disease Other Genitourinary History: 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 Musculoskeletal History: Reports: None Neurological History: Reports: Neuropathy, Diabetic Psychiatric History: Reports: Depression Endocrine/Metabolic History: Reports: Diabetes, Type II, Hypothyroidism Hematologic History: Reports: Anemia Immunologic History: Reports: None Oncologic (Cancer) History: Reports: None Dermatologic History: Reports: Other (See Below) Other Dermatologic History: "itchiness" - Infectious Disease History Infectious Disease History: Reports: Chicken Pox - Past Surgical History HEENT Surgical History: Reports: None, Cataract Surgery Cardiovascular Surgical History: Reports: None GI Surgical History: Reports: None Male Surgical History: Reports: None Endocrine Surgical History: Reports: None Musculoskeletal Surgical History: Reports: None Social & Family History - Family History Family Medical History: Unobtainable HEENT: Reports: Cataract, Glaucoma Cardiac: Reports: Hypertension - Tobacco Use Tobacco Use Status *Q: Former Tobacco User Used Tobacco, but Quit: Yes Month/Year Tobacco Last Used: 09/2006 - Caffeine Use Caffeine Use: Reports: None Caffeine Use Comment: 8. oz - Recreational Drug Use Recreational Drug Use: No - Living Situation & Occupation Living situation: Reports: Other Occupation: Employed ED ROS ENT - Review of Systems Review Of Systems: Comprehensive ROS is negative, except as noted in HPI. ED EXAM, ENT - Physical Exam Exam: See Below Exam Limited By: No Limitations General Appearance: Alert, WD/WN, Mild Distress Eye Exam: Bilateral Eye: EOMI, Normal Inspection, PERRL Ears: Normal External Exam, Normal Canal, Hearing Grossly Normal, Normal TMs Nose: Normal Inspection, Normal Mucousa, No Blood Mouth/Throat: Normal Inspection, Normal Gums, Normal Lips, Normal Oropharynx, Normal Teeth Head: Atraumatic, Normocephalic Neck: Normal Inspection, Supple, Non-Tender, Full Range of Motion Respiratory/Chest: No Respiratory Distress, Lungs Clear, Normal Breath Sounds, No Accessory Muscle Use, Chest Non-Tender Cardiovascular: Normal Peripheral Pulses, Regular Rate, Rhythm, No Edema, No Gallop, No JVD, No Murmur, No Rub GI/Abdominal: Normal Bowel Sounds, Soft, Non-Tender, No Organomegaly, No Distention, No Abnormal Bruit, No Mass (Male) Exam: Deferred Rectal (Males) Exam: Deferred Back: Normal Inspection, Full Range of Motion Extremities: Normal Inspection, Normal Range of Motion, Non-Tender, No Pedal Edema, Normal Capillary Refill Neurological: Alert Psychiatric: Normal Affect, Normal Mood Skin: Dry, Intact, Normal Color, No Rash, Increased Warmth Lymphatic: No Adenopathy Course - Vital Signs Last Recorded V/S: Last Vital Signs Temp 101 F H 09/13/21 03:48 Pulse 80 09/13/21 03:48 Resp 18 09/13/21 03:48 BP 169/97 H 09/13/21 03:48 Pulse Ox 94 L 09/13/21 03:48 - Orders/Labs/Meds Orders: Active Orders 24 hr Category Date Time Status STREP SCRN A RAPID W CULT CONF [RM] Stat Lab 09/13/21 04:10 Results Labs: Laboratory Tests 09/13/21 Range/Units 04:10 Influenza Type A RNA Positive H (NEGATIVE) Influenza Type B RNA Negative (NEGATIVE) SARS-CoV-2 RNA (MARJORIE) Negative (NEGATIVE) Departure - Departure Time of Disposition: 04:56 Disposition: Home, Self-Care 01 Condition: Fair Clinical Impression: Influenza A - Discharge Information *PRESCRIPTION DRUG MONITORING PROGRAM REVIEWED*: Not Applicable *COPY OF PRESCRIPTION DRUG MONITORING REPORT IN PATIENT ILEANA: Not Applicable Instructions: Influenza, Adult, [id number] Forms: ED Department Discharge Care Plan Goals: The patient was advised of the examination and lab results during the visit. The patient was discharged with a script for Tamiflu (75 mg) to take 1 by mouth 2 times per day for 5 days. The patient was encouraged to increase their oral fluid intake. The patient may take Tylenol as directed for temporary symptom relief. The patient was encouraged to stick to a BRAT diet (bananas, rice, applesauce and toast) with small frequent sips of fluid. If the patient has any additional symptoms or concerns, the patient should follow-up with his primary care facility or return to the emergency department. Sepsis Event Note (ED) - Evaluation Sepsis Screening Result: No Definite Risk - Focused Exam Vital Signs: Vital Signs Temp Pulse Resp BP Pulse Ox 09/13/21 03:48 101 F H 80 18 169/97 H 94 L - My Orders Last 24 Hours: My Active Orders 09/13/21 04:10 STREP SCRN A RAPID W CULT CONF [RM] Stat - Assessment/Plan Last 24 Hours: My Active Orders 09/13/21 04:10 STREP SCRN A RAPID W CULT CONF [RM] Stat
== END 2021-09-13 04:59 | disposition home or self-care (01) ==
LOC: DL.ED 03:27
DX: J10.1 Influenza due to other identified influenza virus with other respiratory manifestations (principal); E11.9 Type 2 diabetes mellitus without complications; E03.9 Hypothyroidism, unspecified; I10 Essential (primary) hypertension; Z79.82 Long term (current) use of aspirin; Z79.899 Other long term (current) drug therapy; Z87.891 Personal history of nicotine dependence; Z20.822 Contact with and (suspected) exposure to COVID-19
CPT/HCPCS: 0240U; 87081; 87430; 99283

== ENCOUNTER 2021-12-15 16:25 | Emergency (ER) | payer MEDICARE, MEDICAID ==
[2021-12-15 16:33] VITALS: BP 160/86; PULSE 67
[2021-12-15 17:19] LABS: CORONAVIRUS COVID-19 NAA NEGATIVE (NEGATIVE); RESPIRATORY SYNCYTIAL VIR NAA NEGATIVE (NEGATIVE)
[2021-12-15] MEDS ORDERED: Loratadine 10 MG Tab PO ONE (18:08)
[2021-12-15] MEDS ORDERED: Benzonatate 100 MG Cap PO ONE (18:09)
== END 2021-12-15 18:28 | disposition home or self-care (01) ==
LOC: DL.ED 16:25
DX: J06.9 Acute upper respiratory infection, unspecified (principal); R09.81 Nasal congestion; E11.9 Type 2 diabetes mellitus without complications; E03.9 Hypothyroidism, unspecified; Z79.82 Long term (current) use of aspirin; Z20.822 Contact with and (suspected) exposure to COVID-19
CPT/HCPCS: 0241U; 71045; 87081; 87430; 99283; A9270; 99284

== ENCOUNTER 2022-08-31 01:43 | Emergency (ER) | payer MEDICARE, MEDICAID ==
[2022-08-31] MEDS ORDERED: Lidocaine 2% Viscous Solution 15 ML UD PO ONE (01:44)
[2022-08-31 02:06] VITALS: BP 202/106; PULSE 96
[2022-08-31] MEDS ORDERED: Amoxicillin/Clavulanate K 500-125 MG Tab PO ONE (02:07)
[2022-08-31] MEDS ORDERED: Clindamycin HCl 150 MG Cap PO ONE (02:08)
[2022-08-31] MEDS ORDERED: Lidocaine 2% Viscous Solution 15 ML UD ONE (02:27)
== END 2022-08-31 02:43 | disposition home or self-care (01) ==
LOC: DL.ED 01:43
DX: K04.7 Periapical abscess without sinus (principal); I10 Essential (primary) hypertension; E11.40 Type 2 diabetes mellitus with diabetic neuropathy, unspecified; Z79.82 Long term (current) use of aspirin; Z79.899 Other long term (current) drug therapy
CPT/HCPCS: 99283; A9270

== ENCOUNTER 2022-09-30 13:00 | Emergency (ER) | payer OTHER, MEDICARE, MEDICAID ==
[2022-09-30 13:38] VITALS: BP 156/83; PULSE 81
== END 2022-09-30 13:50 ==
LOC: DL.ED 13:00
DX: Z02.89 Encounter for other administrative examinations (principal); E11.9 Type 2 diabetes mellitus without complications; E03.9 Hypothyroidism, unspecified; I10 Essential (primary) hypertension; Z79.82 Long term (current) use of aspirin
CPT/HCPCS: 82947; 99283

== ENCOUNTER 2023-04-30 15:57 | Emergency (ER) | payer MEDICARE, MEDICAID ==
[2023-04-30] MEDS ORDERED: Ibuprofen 800 MG Tab PO ONE (16:16)
[2023-04-30 16:21] VITALS: BP 217/99; PULSE 73
== END 2023-04-30 17:23 | disposition home or self-care (01) ==
LOC: DL.ED 15:57
DX: S70.02XA Contusion of left hip, initial encounter (principal); S70.12XA Contusion of left thigh, initial encounter; S80.02XA Contusion of left knee, initial encounter; E11.9 Type 2 diabetes mellitus without complications; E03.9 Hypothyroidism, unspecified; E11.40 Type 2 diabetes mellitus with diabetic neuropathy, unspecified; I10 Essential (primary) hypertension; Z99.2 Dependence on renal dialysis; Z79.82 Long term (current) use of aspirin; Z79.899 Other long term (current) drug therapy; W50.0XXA Accidental hit or strike by another person, initial encounter
CPT/HCPCS: 73552; 73562; 99282; 99283; A9270

== ENCOUNTER 2025-06-05 14:56 | Emergency (ER) | payer MEDICAID, MEDICARE ==
[2025-06-05] MEDS ORDERED: Sodium Chloride 0.9% 10 ML Syringe FLUSH PRN (15:42)
[2025-06-05 16:38] LABS: BASOPHILS PERCENT AUTO 0.2 % (0.0-1.0); EOSINOPHILS PERCENT AUTO 0.0 % (1.0-3.0); LYMPHOCYTES PERCENT AUTO 11.0 % (20.5-50.1); MONOCYTES PERCENT AUTO 7.3 % (2-8); NEUTROPHILS PERCENT AUTO 81.5 % (42.2-75.2); PLATELET COUNT,PLT 217 10^3/uL (150-450); RED BLOOD CELL COUNT 3.96 10^6/uL (4.6-6.2); WHITE BLOOD CELL COUNT,WBC 5.1 10^3/uL (5.0-10.0)
[2025-06-05 16:58] LABS: A/G RATIO 1.0; ALANINE AMINOTRANSFERASE,ALT 16.0 U/L (16-63); ASPARTATE AMNIOTRANSFERASE,AST 16.0 U/L (15-37); BILIRUBIN TOTAL 1.1 mg/dL (0.2-1.0); BLOOD UREA NITROGEN,BUN 30.0 mg/dL (7-18); CARBON DIOXIDE,CO2 25.0 mmol/L (21-32); CHLORIDE,CL 95.0 mmol/L (98-107); CREATININE 1.8 mg/dL (0.70-1.30); EST CRCL DRUG DOSING (CG) 55.2 mL/min; ESTIMATED GFR 47.0 mL/min (>=60); GLUCOSE RANDOM 229.0 mg/dL (70-99); POTASSIUM,K 4.2 mmol/L (3.5-5.1); PROTEIN TOTAL,TP 6.8 g/dL (6.4-8.2); SODIUM,NA 127.0 mmol/L (136-145)
[2025-06-05 17:12] LABS: LACTIC ACID 0.8 mmol/L (0.4-2.0)
[2025-06-05 18:14] VITALS: BP 137/100; PULSE 68
== END 2025-06-05 17:23 | disposition home or self-care (01) ==
LOC: DL.ED 14:56
DX: A08.4 Viral intestinal infection, unspecified (principal); I10 Essential (primary) hypertension; E11.9 Type 2 diabetes mellitus without complications; E03.9 Hypothyroidism, unspecified; Z79.82 Long term (current) use of aspirin; Z79.899 Other long term (current) drug therapy
CPT/HCPCS: 36415; 80053; 83605; 83735; 85025; 86140; 99283; 99284

== ENCOUNTER 2025-06-07 04:26 | Emergency (ER) | payer MEDICAID ==
[2025-06-07 04:29] VITALS: BP 135/72; PULSE 66
[2025-06-07] MEDS ORDERED: Sodium Chloride 0.9% 10 ML Syringe FLUSH PRN (04:36)
[2025-06-07 04:47] LABS: BASOPHILS PERCENT AUTO 0.2 % (0.0-1.0); EOSINOPHILS PERCENT AUTO 1.1 % (1.0-3.0); LYMPHOCYTES PERCENT AUTO 18.1 % (20.5-50.1); MONOCYTES PERCENT AUTO 10.6 % (2-8); NEUTROPHILS PERCENT AUTO 70.0 % (42.2-75.2); PLATELET COUNT,PLT 236 10^3/uL (150-450); RED BLOOD CELL COUNT 4.13 10^6/uL (4.6-6.2); WHITE BLOOD CELL COUNT,WBC 4.5 10^3/uL (5.0-10.0)
[2025-06-07 05:12] LABS: ALANINE AMINOTRANSFERASE,ALT 16.0 U/L (16-63); ASPARTATE AMNIOTRANSFERASE,AST 16.0 U/L (15-37); BILIRUBIN TOTAL 0.8 mg/dL (0.2-1.0); BLOOD UREA NITROGEN,BUN 27.0 mg/dL (7-18); CARBON DIOXIDE,CO2 24.0 mmol/L (21-32); CHLORIDE,CL 93.0 mmol/L (98-107); CREATININE 1.81 mg/dL (0.70-1.30); EST CRCL DRUG DOSING (CG) 54.89 mL/min; GLUCOSE RANDOM 170.0 mg/dL (70-99); POTASSIUM,K 3.5 mmol/L (3.5-5.1); PROTEIN TOTAL,TP 6.7 g/dL (6.4-8.2); SODIUM,NA 126.0 mmol/L (136-145)
[2025-06-07 05:15] LABS: LACTIC ACID 0.9 mmol/L (0.4-2.0)
[2025-06-07 05:21] LABS: A/G RATIO 0.97; ESTIMATED GFR 46.0 mL/min (>=60)
[2025-06-07] MEDS: Magnesium Sulfat/D5W 1GM/100ML 1 GM in Premix Bag 1 BAG IV ONE (05:29)
[2025-06-07 05:38] LABS: APPEARANCE,URINE CLEAR (CLEAR); GLUCOSE,URINE NEGATIVE (NEGATIVE); OCCULT BLOOD,URINE NEGATIVE (NEGATIVE)
== END 2025-06-07 06:59 | disposition home or self-care (01) ==
LOC: DL.ED 04:26
DX: K52.9 Noninfective gastroenteritis and colitis, unspecified (principal); I13.0 Hypertensive heart and chronic kidney disease with heart failure and stage 1 through stage 4 chronic kidney disease, or unspecified chronic kidney disease; I50.9 Heart failure, unspecified; N18.2 Chronic kidney disease, stage 2 (mild); T50.905A Adverse effect of unspecified drugs, medicaments and biological substances, initial encounter; E87.1 Hypo-osmolality and hyponatremia; E11.22 Type 2 diabetes mellitus with diabetic chronic kidney disease; E03.9 Hypothyroidism, unspecified; Z79.82 Long term (current) use of aspirin; Z79.899 Other long term (current) drug therapy
CPT/HCPCS: 36415; 80053; 81003; 83605; 83690; 83735; 85025; 96365; 99284; J3475

== ENCOUNTER 2025-06-12 16:18 | Observation (INO) | payer MEDICAID ==
[2025-06-12] MEDS ORDERED: Ondansetron 4 MG/2 ML SDV IVPUSH PRN (17:01)
[2025-06-12] MEDS ORDERED: 50% Dextrose in Water 50 ML Syringe IVPUSH PRN ×2 (17:14→20:34)
[2025-06-12] MEDS: Magnesium Sulfate 2 GM/50 mL 2 GM in Premix Bag 1 BAG IV ONE ×2 (21:23→21:55)
[2025-06-12] MEDS: Heparin Sodium 5,000 Units/ML Vial SUBCUT SCH (21:43)
[2025-06-12] MEDS: MYCOPHENOLATE MOFETIL 250 MG PO SCH (21:47)
[2025-06-12] MEDS: Insulin Glarg,Human.Rec.Analog 100 Unit/ML 10 ML Vial SUBCUT SCH (21:52)
[2025-06-13 06:12] LABS: BASOPHILS PERCENT AUTO 0.0 % (0.0-1.0); EOSINOPHILS PERCENT AUTO 0.8 % (1.0-3.0); LYMPHOCYTES PERCENT AUTO 13.8 % (20.5-50.1); MONOCYTES PERCENT AUTO 13.5 % (2-8); NEUTROPHILS PERCENT AUTO 71.9 % (42.2-75.2); PLATELET COUNT,PLT 279 10^3/uL (150-450); RED BLOOD CELL COUNT 3.99 10^6/uL (4.6-6.2); WHITE BLOOD CELL COUNT,WBC 4.8 10^3/uL (5.0-10.0)
[2025-06-13 06:40] LABS: ALANINE AMINOTRANSFERASE,ALT 24.0 U/L (16-63); ASPARTATE AMNIOTRANSFERASE,AST 19.0 U/L (15-37); BILIRUBIN DIRECT 0.1 mg/dL (0.0-0.2); BILIRUBIN INDIRECT 0.6; BILIRUBIN TOTAL 0.7 mg/dL (0.2-1.0); BLOOD UREA NITROGEN,BUN 11.0 mg/dL (7-18); CARBON DIOXIDE,CO2 29.0 mmol/L (21-32); CHLORIDE,CL 100.0 mmol/L (98-107); CREATININE 1.56 mg/dL (0.70-1.30); EST CRCL DRUG DOSING (CG) 55.91 mL/min; GLUCOSE RANDOM 126.0 mg/dL (70-99); PHOSPHORUS 2.2 mg/dL (2.6-4.7); POTASSIUM,K 3.7 mmol/L (3.5-5.1); PROTEIN TOTAL,TP 6.0 g/dL (6.4-8.2); SODIUM,NA 135.0 mmol/L (136-145); T4 FREE 1.52 ng/dL (0.76-1.46); TSH ULTRASENSITIVE 2.4 uIU/mL (0.36-3.74)
[2025-06-13 06:43] LABS: A/G RATIO 1.0; ESTIMATED GFR 55.0 mL/min (>=60)
[2025-06-13 07:51] VITALS: BP 151/78
[2025-06-13] MEDS: PREDNISONE 5 MG PO SCH (08:01)
[2025-06-13 08:05] VITALS: PULSE 59
[2025-06-13] MEDS: TACROLIMUS 0.5 MG PO SCH (09:39)
[2025-06-13] MEDS: TACROLIMUS 1 MG PO SCH (09:39)
[2025-06-15] MEDS ORDERED: CINACALCET 30 MG PO SCH (09:00)
== END 2025-06-13 09:53 | disposition home or self-care (01) ==
LOC: PREINTOOBSV 16:25 → DL.MS 17:08
PROVIDERS: ADMIT Internal Medicine; ATTEND Internal Medicine
DX: E87.1 Hypo-osmolality and hyponatremia (principal); K52.9 Noninfective gastroenteritis and colitis, unspecified; E83.42 Hypomagnesemia; F32.A Depression, unspecified; D64.9 Anemia, unspecified; I13.0 Hypertensive heart and chronic kidney disease with heart failure and stage 1 through stage 4 chronic kidney disease, or unspecified chronic kidney disease; I50.9 Heart failure, unspecified; E11.22 Type 2 diabetes mellitus with diabetic chronic kidney disease; N18.9 Chronic kidney disease, unspecified; Z94.0 Kidney transplant status; Z79.4 Long term (current) use of insulin; Z79.82 Long term (current) use of aspirin; Z79.899 Other long term (current) drug therapy
CPT/HCPCS: 36415; 80048; 80076; 82947; 83735; 83930; 84100; 84439; 84443; 85025; A9270; J1644; J1815; J3475; J7030; J7512; 87046; 99223; 99239